=== PATIENT | female | born 1985 | race Caucasian/White ===

== ENCOUNTER → 2016-07-16 | Outpatient (CLI) | payer MEDICAID ==
[~2016-07-16] MED LIST: CEPH500C PO; HYDR1CRE73 PR; IBUP-232 PO; LABE100T2 PO; LABE300T PO; ORTH0.35 PO; OXYC1TAB63 PO; PREN1CAP7 PO
== END ==
LOC: HPND 07:52
PROVIDERS: ATTEND Obstetrics & Gynecology Obstetrics
DX: O44.03 Complete placenta previa NOS or without hemorrhage, third trimester (principal)
CPT/HCPCS: 76816

== ENCOUNTER 2016-07-28 12:01 | Emergency (ER) | payer MEDICAID ==
[~2016-07-28 12:01] MED LIST changes: -HYDR1CRE73 PR; -IBUP-232 PO; -LABE100T2 PO; -LABE300T PO; -ORTH0.35 PO; -OXYC1TAB63 PO
[2016-07-28 13:45] VITALS: RESP 18; TEMP 97.9
--- NOTE | 2016-07-28 13:56 | PD ---
HPI Chief Complaint Patient presented from the office due to increased blood pressure Date Seen: Jul 28, 2016 Time Seen: 13:30 Travel History International Travel<30 Days: No Contact w/Intl Traveler<30Days: No Known Affected Area: No History of Present Illness HPI 31-year-old 011 at 39 weeks and 6 days of gestation, EDC 07/29/16, patient sent from the office for evaluation due to increased blood pressure noted during office visit, patient denies headaches, blurry vision, visual disturbances and epigastric pain. Blood pressure in OB ED is 136/89, 140/87. Patient denies cramping, contractions, leakage of fluids, vaginal bleeding. She reports presence of movements. care [facility], course is unremarkable. Para: 1 : 3 Miscarriage: 0 : 1 History Past Medical History Narrative Medical Denies Medical History: Denies Significant Hx Obstetric History Obstetric History Spontaneous vaginal delivery 1, termination of 1 Past Surgical History Narrative Surgical Denies Surgical History: No Previous Surgery Family History Narrative Family History Significant for asthma and hypertension Social History Alcohol Use: No Tobacco Use: Yes (patient smokes e-cigarettes) Substance Abuse: No Allergies-Medications (Allergen,Severity, Reaction): Coded Allergies: No Known Allergies (Verified , 07/28/16) Home Meds Active Scripts Cephalexin 500 Mg [id number] Mg PO Q12H #14 CAP Ref 0 Prov:Syeda Deleon TRELL RESIDENT DOCTOR 07/23/16 Reported Medications W/O Vit A W/ Fe Fumar (Citranatal [place])27-1-260 Mg Cap1 Cap PO DAILY #30 CAP Ref 0 06/23/16 Review of Systems Except as stated in HPI: all other systems reviewed are Neg Cardiovascular: Other (increased blood pressure) Physical Exam Narrative GENERAL: Well-nourished, well-developed patient. SKIN: Warm and dry. HEAD: Normocephalic and atraumatic. EYES: No scleral icterus. No injection or drainage. ENT: No nasal drainage noted. Mucous membranes pink. Airway patent. NECK: Supple, trachea midline. No JVD. CARDIOVASCULAR: Regular rate and rhythm without murmurs, gallops, or rubs. RESPIRATORY: Breath sounds equal bilaterally. No accessory muscle use. BREASTS: Bilateral exam showed no masses , no retractions, no nipple discharge. ABDOMEN/GI: Abdomen soft, gravid, non-tender, bowel sounds present, no rebound, no guarding Gravid to 40 weeks size Fundal Height: 40 cm GENITOURINARY: External Genitalia: intact and normal in appearance BUS glands: Normal Cervix: Closed, long, posterior Dilatation: Closed Effacement: 30% Station: -3 Presentation: Cephalic Membranes: Intact Uterine Contractions: Occasional FHT's: Category: one Baseline: 140s Reactive: Yes Variability: Moderate Decels: None EXTREMITIES: No cyanosis or edema. BACK: Nontender without obvious deformity. No CVA tenderness. NEUROLOGICAL: Awake and alert. Motor and sensory grossly within normal limits. Five out of 5 muscle strength in all muscle groups. Normal speech. Data Data Vital Signs Reviewed: Yes Orders Vital Signs (Adult) .ON ADMISSION (07/28/16 13:20) ^ Labor Status (07/28/16 13:20) Urinalysis - C+S If Indicated (07/28/16 13:20) ^ Non Stress Test (07/28/16 13:20) ^ Hydration (07/28/16 13:20) Comprehensive Metabolic Panel (07/28/16 13:20) Uric Acid (07/28/16 13:20) Ldh Serum (07/28/16 13:20) Complete Blood Count With Diff (07/28/16 13:20) Protein Creat Ratio, Random Ur (07/28/16 13:22) MDM Medical Record Reviewed: Yes Diagnosis Diagnosis: Primary Impression: 40 weeks gestation of Additional Impression: High blood pressure affecting in third trimester, antepartum Disposition: 01 DISCHARGE HOME Condition: Stable Patient Instructions: Early Labor Signs (ED), Movement (ED), General Instructions, Preeclampsia (ED) Additional Instructions: Patient instructed to return to labor and delivery if she has headaches, blurry vision, visual disturbances, epigastric pain. She is to return to labor and delivery if increased cramping, contractions, leakage of fluids, vaginal bleeding or decreased movements. Drink plenty of fluids. Monitor kick counts. Keep office appointment as scheduled. Departure Forms: Tests/Procedures Jaylon Freeman MD Jul 28, 2016 13:55
[2016-07-28 14:09] LABS: AUTOMATED NEUTROPHIL # 4.5 TH/MM3 (1.8-7.7); BASOPHIL % 0.3 % (0.0-2.0); EOSINOPHIL % 0.6 % (0.0-4.0); HEMATOCRIT 32.2 % (35.0-46.0); HEMO FLAGS DIFF FINAL; LYMPH % 24.9 % (9.0-44.0); LYMPHOCYTE # 1.6 TH/MM3 (1.0-4.8); MEAN CELL VOLUME 91.8 FL (80.0-100.0); MEAN CORPUSCULAR HEMOGLOBIN 31.1 PG (27.0-34.0); MEAN CORPUSCULAR HGB CONC 33.9 % (32.0-36.0); MONO % 5.4 % (0.0-8.0); NEUT % 68.8 % (16.0-70.0); PLATELET COUNT 140 TH/MM3 (150-450); RED CELL DISTRIBUTION WIDTH 14.1 % (11.6-17.2); WHITE BLOOD COUNT 6.6 TH/MM3 (4.0-11.0)
[2016-07-28 14:21] LABS: BACTERIA, URINE RARE /hpf; BLOOD, URINE NEG (NEG); GLUCOSE,URINE NEG (NEG); KETONE, URINE NEG (NEG); MUCUS URINE FEW /lpf (OCC); NITRITE,URINE NEG (NEG); PH, URINE 6.5 (5.0-8.5); SQUAMOUS EPITHELIAL CELL URINE 20 /hpf (0-5); URINE COLOR YELLOW (YELLW/STRAW)
[2016-07-28 14:29] LABS: COMMENT (UR) CULT NOT INDICATED; CULTURE IF INDICATED CULT NOT INDICATED
[2016-07-28 14:37] LABS: ALT (GPT) 37 U/L (10-53); ANION GAP 10 MEQ/L (5-15); AST (GOT) 25 U/L (15-37); BICARBONATE 24.8 MEQ/L (21.0-32.0); BLOOD UREA NITROGEN 8 MG/DL (7-18); CHLORIDE 105 MEQ/L (98-107); GLOMERULAR FILTRATION RATE 110 ML/MIN (>89); LDH SERUM 162 U/L (84-246); POTASSIUM 3.6 MEQ/L (3.5-5.1); SODIUM (NA) 140 MEQ/L (136-145); URIC ACID 3.1 MG/DL (2.6-6.0)
[2016-07-28 14:39] LABS: ALKALINE PHOSPHATASE 212 U/L (45-117); TOTAL BILIRUBIN ADULT 0.3 MG/DL (0.2-1.0)
[2016-08-13] MEDS ORDERED: LABE100T2 PO (11:29)
[2016-09-01] MEDS ORDERED: HYDR1CRE73 PR (10:07)
[2016-09-01] MEDS ORDERED: ORTH0.35 PO (10:08)
== END 2016-07-28 19:08 | disposition home or self-care (01) ==
LOC: HOBED 12:01
DX: O26.93 Pregnancy related conditions, unspecified, third trimester (principal); R03.0 Elevated blood-pressure reading, without diagnosis of hypertension; Z3A.40 40 weeks gestation of pregnancy
CPT/HCPCS: 36415; 59025; 80053; 81001; 82570; 83615; 84156; 84550; 85025

== ENCOUNTER 2016-07-30 06:09 | Inpatient (IN) | payer MEDICAID ==
[~2016-07-30] VITALS: Ht 162.6 cm; Wt 74.4 kg
[2016-07-30] VITALS (73 sets, daily range): BP systolic 126–173; BP diastolic 73–126; PULSE 63–112; RESP 16–20; TEMP 97.9–98.7; O2SAT 99
[2016-07-30] MEDS ORDERED: LIDOCAINE HCL 1% 50 ML VIAL INFIL PRN (07:30)
[2016-07-30] MEDS ORDERED: CITRIC ACID-SODIUM CITRATE LIQ 30 ML UDC PO SCH (07:30)
[2016-07-30] MEDS ORDERED: SODIUM CHLORID 0.9% 500 ML INJ 500 ML IV PRN (07:30)
[2016-07-30] MEDS ORDERED: LACTATED RINGER'S 1000 ML INJ 1,000 ML IV PRN (07:30)
[2016-07-30] MEDS ORDERED: OXYTOCIN 30 UNITS-500ML PREMIX 500 ML IV ONE (07:30)
[2016-07-30] MEDS ORDERED: OXYTOCIN 30 UNITS-500ML PREMIX 500 ML IV SCH (07:30)
[2016-07-30] MEDS ORDERED: LIDOCAINE HCL 1% 50 ML VIAL I-DERMAL PRN (07:30)
[2016-07-30] MEDS ORDERED: MINERAL OIL 10 ML VIAL TOPICAL PRN (07:30)
[2016-07-30] MEDS ORDERED: ONDANSETRON HCL 4 MG/2 ML VIAL IV PRN (07:30)
--- NOTE | 2016-07-30 07:38 | HHI.HP ---
HPI Chief Complaint Blood pressure for induction Date Seen: Jul 30, 2016 Travel History International Travel<30 Days: No Contact w/Intl Traveler<30Days: No History of Present Illness HPI The patient is 31-year-old white female A1 now at 40 weeks gestation presents for induction of labor for induced hypertension. The patient was seen here several days ago with Dr. Dana Hayes for hypertension she was sent over from [facility] Lindsey Riggins is her provider. She has no other problems she denies pain bleeding or rupture the membranes baby is active heart rate tracing is reactive she is only having occasional contraction now Para: 1 : 3 : 1 History Past Medical History Narrative Medical previous history is positive for previous drug use she's been on Subutex in the past but not now Obstetric History Obstetric History One vaginal delivery 1 loss Social History Alcohol Use: No Tobacco Use: Yes Substance Abuse: Yes Allergies-Medications (Allergen,Severity, Reaction): Coded Allergies: No Known Allergies (Verified , 07/30/16) Home Meds Active Scripts Cephalexin 500 Mg [id number] Mg PO Q12H #14 CAP Ref 0 Prov:DeleonSyeda CNM LOCOMOTIVE SUPERVISOR 07/23/16 Reported Medications W/O Vit A W/ Fe Fumar (Citranatal [place])27-1-260 Mg Cap1 Cap PO DAILY #30 CAP Ref 0 06/23/16 Review of Systems General / Constitutional: No: Fever, Weight Gain, Chills, Other Eyes: No: Diploplia, Blurred Vision, Visual changes, Pain, Photophobia HENT: No: Headaches, Vertigo, Lightheadedness Cardiovascular: No: Irregular Rhythm, Chest Pain or Discomfort, Palpitations, Tachycardia, Syncope, Varicosities, Edema, Cyanosis Respiratory: No: Cough, Short of Breath, Other Gastrointestinal: No: Nausea, Vomiting, Diarrhea Genitourinary: No: Decreased Urinary Output, Oliguria Musculoskeletal: No: Limited ROM, Weakness, Cramping, Edema, Pain Skin: No Rash, No Itching, No Dryness, No Lumps, No Change in Pigmentation, No Change in Nails, No Alopecia, No Lesions Neurologic: No: Weakness, Dizziness, Syncope, Focal Abnormalities, Coordination Problem, Headache, Slurred Speech, Seizures Psychiatric: No: Depression, Suicidal Ideations, Homicidal Ideation Endocrine: No: Heat Intolerance, Cold Intolerance, Polydipsia, Polyuria, Other Physical Exam Narrative GENERAL: Well-nourished, well-developed patient. SKIN: Warm and dry. HEAD: Normocephalic and atraumatic. EYES: No scleral icterus. No injection or drainage. ENT: No nasal drainage noted. Mucous membranes pink. Airway patent. NECK: Supple, trachea midline. No JVD. CARDIOVASCULAR: Regular rate and rhythm without murmurs, gallops, or rubs. RESPIRATORY: Breath sounds equal bilaterally. No accessory muscle use. BREASTS: Bilateral exam showed no masses , no retractions, no nipple discharge. ABDOMEN/GI: Abdomen soft, non-tender, bowel sounds present, no rebound, no guarding Gravid to [38-] weeks size Fundal Height: [-38 cm] GENITOURINARY: External Genitalia: intact and normal in appearance BUS glands: [-] Cervix: [-] Dilatation: [1-] Effacement: [50-] Station: [-3] Presentation: [-vtx] Membranes: [intact ] Uterine Contractions: [-occasional] FHT's: Category: [-1] Baseline: [144-] Reactive: [-yes] Variability: [-mod] Decels: [none-] EXTREMITIES: No cyanosis or edema. BACK: Nontender without obvious deformity. No CVA tenderness. NEUROLOGICAL: Awake and alert. Motor and sensory grossly within normal limits. Five out of 5 muscle strength in all muscle groups. Normal speech. Data Data Orders ^ Non Stress Test (07/30/16 07:29) Response To Medication .Post New Med Administration, Reaction (07/30/16 07:29) ^ Discontinue Medication (07/30/16 07:29) Oxytocin 30 Units-500ml Premix (Pitocin (07/30/16 07:30) Admit To Inpatient (07/30/16 ) Vital Signs (Adult) .Per protocol (07/30/16 07:30) ^ Heart (07/30/16 07:30) ^ Amnioinfusion (07/30/16 07:30) Urinary Catheter Management .ONCE (07/30/16 07:30) Diet Liquid (07/30/16 Breakfast) Lactated Ringer's 1000 Ml Inj (Lr 1000 M (07/30/16 07:30) Lactated Ringer's 1000 Ml Inj (Lr 1000 M (07/30/16 07:30) Sodium Chlorid 0.9% 500 Ml Inj (Ns 500 M (07/30/16 07:30) Sodium Chlor 0.9% 1000 Ml Inj (Ns 1000 M (07/30/16 07:50) Lidocaine 1% Inj (50 Ml) (Xylocaine 1% I (07/30/16 07:30) Citric Acid-Sodium Citrate Liq (Bicitra (07/30/16 07:30) Ondansetron Inj (Zofran Inj) (07/30/16 07:30) Fentanyl Inj (Fentanyl Inj) (07/30/16 07:30) Fentanyl Inj (Fentanyl Inj) (07/30/16 07:30) Complete Blood Count With Diff (07/30/16 07:30) Hold Clot (07/30/16 07:30) Abo/Rh Blood Type (07/30/16 07:30) Urinalysis - C+S If Indicated (07/30/16 07:30) Resp Oxygen Non Rebreathe Mask (07/30/16 ) ^ Epidural / Intrathecal Infus (07/30/16 07:30) Oxytocin 30 Units-500ml Premix (Pitocin (07/30/16 07:30) Lidocaine 1% Inj (50 Ml) (Xylocaine 1% I (07/30/16 07:30) Light Mineral Oil (Muri-Lube Oil) (07/30/16 07:30) Specimen To Be Collected PRN (07/30/16 07:30) Comprehensive Metabolic Panel (07/30/16 07:31) Assessment/Plan Assessment and Plan This patient is a 31-year-old white female A1 at 40 weeks gestation presents as an induction of labor for -induced hypertension. [facility]. Her baby is active and NST reactive she is not richa much at this point blood pressure here 149/99, urinalysis is pending [facility] labs pending Plan this induction of labor for [facility] Lenny Hua II, MD Jul 30, 2016 07:37
[2016-07-30 07:41] LABS: AUTOMATED NEUTROPHIL # 5.4 TH/MM3 (1.8-7.7); BASOPHIL # 0.1 TH/MM3 (0-0.2); BASOPHIL % 1.3 % (0.0-2.0); EOSINOPHIL # 0.1 TH/MM3 (0-0.4); EOSINOPHIL % 0.6 % (0.0-4.0); HEMATOCRIT 33.9 % (35.0-46.0); HEMO FLAGS DIFF FINAL; LYMPH % 26.2 % (9.0-44.0); LYMPHOCYTE # 2.2 TH/MM3 (1.0-4.8); MEAN CORPUSCULAR HEMOGLOBIN 31.6 PG (27.0-34.0); MONO % 7.8 % (0.0-8.0); NEUT % 64.1 % (16.0-70.0); PLATELET COUNT 206 TH/MM3 (150-450); RED BLOOD COUNT 3.64 MIL/MM3 (4.00-5.30); RED CELL DISTRIBUTION WIDTH 13.9 % (11.6-17.2); WHITE BLOOD COUNT 8.4 TH/MM3 (4.0-11.0)
[2016-07-30 07:45] LABS: BACTERIA, URINE MOD /hpf; BLOOD, URINE NEG (NEG); COMMENT (UR) CULTURE INDICATED; CULTURE IF INDICATED CULTURE INDICATED; GLUCOSE,URINE NEG (NEG); KETONE, URINE NEG (NEG); MUCUS URINE FEW /lpf (OCC); NITRITE,URINE NEG (NEG); PH, URINE 6.5 (5.0-8.5); SQUAMOUS EPITHELIAL CELL URINE 47 /hpf (0-5); URINE COLOR YELLOW (YELLW/STRAW)
[2016-07-30] MEDS ORDERED: SODIUM CHLOR 0.9% 1000 ML INJ 1,000 ML IV PRN (07:50)
[2016-07-30] MEDS: LACTATED RINGER'S 1000 ML INJ 1,000 ML IV SCH ×4 (08:03→23:30)
[2016-07-30 08:11] LABS: ALKALINE PHOSPHATASE 234 U/L (45-117); ALT (GPT) 39 U/L (10-53); ANION GAP 8 MEQ/L (5-15); AST (GOT) 48 U/L (15-37); BLOOD UREA NITROGEN 11 MG/DL (7-18); CHLORIDE 102 MEQ/L (98-107); GLOMERULAR FILTRATION RATE 98 ML/MIN (>89); POTASSIUM 4.4 MEQ/L (3.5-5.1); SODIUM (NA) 134 MEQ/L (136-145); TOTAL BILIRUBIN ADULT 0.4 MG/DL (0.2-1.0)
[2016-07-30 08:39] LABS: AMPHETAMINE, URINE NEG (NEG); BARBITURATES, URINE NEG (NEG); COCAINE, URINE NEG (NEG)
--- NOTE | 2016-07-30 09:18 | PD.LABORPN ---
Subjective Subjective Patient resting in bed. Slightly anxious about the delivery. Denies any headache , changes in vision, abdominal pain. BPs range in 150/100s Objective Vital Signs Vital Signs Date Time Temp Pulse Resp B/P Pulse Ox O2 Delivery O2 Flow Rate FiO2 07/30/16 08:15 102 156/103 Objective Pelvic Exam: Dilatation: 1 Effacement: 50% Station: -3 Presentation: vertex Membranes: intact Uterine Contractions: q5-7 minutes FHT's: Category: 1 Baseline: 130 Reactive: yes Variability: moderate Decels: none Assessment/Plan Assessment and Plan 31 y/o at 40/1 in labor -BPs 150/100s -Platelets 206, AST 48, urine 30 protein -Anxious, otherwise asymptomatic Plan - Monitor vitals - Monitor symptoms - Continuous FHT - Expectant management - Plan for vaginal delivery Boyd Albarran MD R1 Jul 30, 2016 09:18
[2016-07-30] MEDS ORDERED: NIFEdipine 10 MG CAP PO ONE (10:15)
--- NOTE | 2016-07-30 10:18 | PD.LABORPN ---
Subjective Subjective Changing shifts Dr. Love coming on duty; Chart reviewed This patient is a 31-year-old 3 para 1 presently at 40 weeks admitted for an elective induction secondary to -induced hypertension. She has no known drug allergies she no longer uses Subutex. B strep is negative Previous vaginal delivery of weighing 7 lbs. 13 oz. which was uncomplicated On physical exam a change of shift blood pressures 172/96 Abdomen is gravid and term with an estimated weight of 8 pounds No edema of her lower extremities and her reflexes are 2+ and non-brisk On examination she is 50% 1 cm with the vertex at a -3 station cervix is a little less posterior Pitocin is presently on 4 milliunits she is richa irregularly She has a category 1 tracing with a baseline of 130 accelerations up to 160 with moderate [id number] variability Have introduced myself to the patient and her family Explain the process of induction as well as Pitocin Discussed the course of the labor plan in that at the end of the day if she has not made any change we will stop the Pitocin have her eat and Ambulate , Cervidil tonight and restart the Pitocin in the a.m. Patient agrees with this plan Objective Vital Signs Vital Signs Date Time Temp Pulse Resp B/P Pulse Ox O2 Delivery O2 Flow Rate FiO2 07/30/16 09:23 16 07/30/16 09:15 80 154/104 07/30/16 09:00 82 142/96 07/30/16 08:53 16 07/30/16 08:45 89 148/97 07/30/16 08:32 86 165/97 07/30/16 08:30 16 07/30/16 08:15 102 156/103 Objective Pelvic Exam: Cervix: [-] Dilatation: [-] Effacement: [-] Station: [-] Presentation: [-] Membranes: [intact or ruptured] Uterine Contractions: [-] FHT's: Category: [-] Baseline: [-] Reactive: [-] Variability: [-] Decels: [-] Neha Baumann MD Jul 30, 2016 10:18
[2016-07-30] MEDS ORDERED: fentaNYL 2MCG-BUPIV 0.125% INJ 100 ML ONE (19:22)
[2016-07-30] MEDS ORDERED: fentaNYL 2MCG-BUPIV 0.125% INJ 100 ML EPIDURAL SCH (19:30)
[2016-07-30] MEDS ORDERED: ePHEDrine/NS 50 MG/5 ML SYR IV PRN (19:30)
[2016-07-30] MEDS ORDERED: NO SYSTEM NARCOTICS XX PRN (19:30)
[2016-07-30] MEDS ORDERED: DO NOT ADMINISTER ANTICOAGULANTS XX PRN (19:30)
[2016-07-30] MEDS ORDERED: NIFEdipine 10 MG CAP ONE (20:01)
--- NOTE | 2016-07-30 20:01 | PD.LABORPN ---
Subjective Subjective Blood pressures have been consistently elevated will give Procardia 10 mg by mouth Will do rupture of membranes Placement of an IUPC Pitocin We'll also start patient on magnesium sulfate 4 g loading dose 2 g an hour Objective Vital Signs Vital Signs Date Time Temp Pulse Resp B/P Pulse Ox O2 Delivery O2 Flow Rate FiO2 07/30/16 16:45 75 16 155/98 07/30/16 16:30 145/98 07/30/16 16:30 76 07/30/16 16:15 79 170/117 07/30/16 16:02 66 169/106 07/30/16 16:02 97.9 20 07/30/16 15:45 69 149/94 07/30/16 15:30 75 151/98 07/30/16 15:29 16 07/30/16 15:15 71 132/81 07/30/16 15:00 63 16 131/79 07/30/16 14:46 64 152/81 07/30/16 14:30 76 16 136/87 07/30/16 14:30 98.7 07/30/16 14:15 75 147/94 07/30/16 14:00 67 16 145/89 07/30/16 13:46 75 128/81 07/30/16 13:31 73 162/93 07/30/16 13:30 16 07/30/16 13:15 81 144/93 07/30/16 13:00 98 158/91 07/30/16 12:54 98.6 07/30/16 12:52 16 07/30/16 12:45 83 141/88 07/30/16 12:30 84 130/78 07/30/16 12:15 91 138/82 Objective Pelvic Exam: Cervix: [-] Dilatation: [-] Effacement: [-] Station: [-] Presentation: [-] Membranes: [intact or ruptured] Uterine Contractions: [-] FHT's: Category: [-] Baseline: [-] Reactive: [-] Variability: [-] Decels: [-] Neha Baumann MD Jul 30, 2016 20:01
[2016-07-30] MEDS ORDERED: MAGNESIUM SULFATE 40 GM PREMIX 1,000 ML ONE (20:02)
[2016-07-30] MEDS ORDERED: MAGNESIUM SULFATE 4 GM PREMIX 100 ML ONE (20:02)
[2016-07-30] MEDS ORDERED: SODIUM CHLORIDE 0.9% FLUSH 5 ML FLUSH IV PRN (20:15)
[2016-07-30] MEDS ORDERED: MAGNESIUM SULFATE 4 GM PREMIX 100 ML IV ONE (20:15)
[2016-07-30] MEDS ORDERED: CALCIUM GLUCONATE 10% 1 GM/10 ML VIAL IV PUSH PRN (20:15)
[2016-07-30] MEDS ORDERED: NIFEdipine 10 MG CAP PO PRN ×3 (20:15→20:45)
[2016-07-30] MEDS: MAGNESIUM SULFATE 40 GM PREMIX 1,000 ML IV SCH (20:20)
--- NOTE | 2016-07-30 20:25 | PD.LABORPN ---
Subjective Subjective Patient now has epidural was placed as the patient is very uncomfortable not allowing exams and very uncomfortable with exams Blood pressure 160s over 100 Now 147/82 Patient started on magnesium sulfate for preeclampsia due to protein in her urine mildly elevated liver enzymes and elevated blood pressure Pitocin restarted 07/13/29 On exam patient is 1-2 cm 50% with the vertex at a -2 station Once patient gets into a good labor pattern Will artificially rupture the membranes IUPC Anticipate vaginal delivery Category 1 tracing Objective Vital Signs Vital Signs Date Time Temp Pulse Resp B/P Pulse Ox O2 Delivery O2 Flow Rate FiO2 07/30/16 16:45 75 16 155/98 07/30/16 16:30 145/98 07/30/16 16:30 76 07/30/16 16:15 79 170/117 07/30/16 16:02 66 169/106 07/30/16 16:02 97.9 20 07/30/16 15:45 69 149/94 07/30/16 15:30 75 151/98 07/30/16 15:29 16 07/30/16 15:15 71 132/81 07/30/16 15:00 63 16 131/79 07/30/16 14:46 64 152/81 07/30/16 14:30 76 16 136/87 07/30/16 14:30 98.7 07/30/16 14:15 75 147/94 07/30/16 14:00 67 16 145/89 07/30/16 13:46 75 128/81 07/30/16 13:31 73 162/93 07/30/16 13:30 16 07/30/16 13:15 81 144/93 07/30/16 13:00 98 158/91 07/30/16 12:54 98.6 07/30/16 12:52 16 07/30/16 12:45 83 141/88 07/30/16 12:30 84 130/78 Objective Pelvic Exam: Cervix: [-] Dilatation: [-] Effacement: [-] Station: [-] Presentation: [-] Membranes: [intact or ruptured] Uterine Contractions: [-] FHT's: Category: [-] Baseline: [-] Reactive: [-] Variability: [-] Decels: [-] Neha Baumann MD Jul 30, 2016 20:25
[2016-07-30] MEDS: SODIUM CHLORIDE 0.9% FLUSH 5 ML FLUSH IV SCH (21:00)
[2016-07-30] MEDS ORDERED: LABETALOL HCL 100 MG/20 ML VIAL IV PUSH PRN (21:15)
[2016-07-31] VITALS (109 sets, daily range): BP systolic 115–167; BP diastolic 64–124; PULSE 64–118; RESP 16–18; TEMP 96.5–98.6; O2SAT 96–100
--- NOTE | 2016-07-31 02:03 | PD.LABORPN ---
Subjective Subjective Patient is 50% effaced 4 cm dilated with a vertex at a -2 station Epidural is in place and patient is comfortable Attempts to do artificial rupture membranes however no membranes palpated no fluid per vagina (Patient states she may have ruptured her membranes while on the toilet but unsure) Category 1 tracing Vital signs are stable Pitocin at 6 milliunits and contractions are irregular every 2-5 minutes Continue to monitor Objective Vital Signs Vital Signs Date Time Temp Pulse Resp B/P Pulse Ox O2 Delivery O2 Flow Rate FiO2 07/31/16 01:20 70 97 07/31/16 01:15 72 123/70 97 07/31/16 01:09 18 07/31/16 01:01 71 135/82 07/31/16 01:00 73 16 97 07/31/16 00:55 74 98 07/31/16 00:50 71 98 07/31/16 00:45 83 153/90 99 07/31/16 00:30 74 141/95 98 07/31/16 00:30 80 07/31/16 00:25 75 98 07/31/16 00:20 79 98 07/31/16 00:15 74 125/92 99 07/31/16 00:15 86 07/31/16 00:11 16 07/31/16 00:10 75 98 07/31/16 00:05 77 98 07/31/16 00:00 78 07/31/16 00:00 80 141/86 98 07/30/16 23:45 79 07/30/16 23:45 75 126/74 99 07/30/16 23:00 69 07/30/16 22:46 68 135/74 07/30/16 22:30 78 135/92 07/30/16 22:15 16 07/30/16 22:15 77 139/88 07/30/16 22:00 83 150/93 07/30/16 22:00 18 07/30/16 22:00 80 07/30/16 21:45 77 143/90 07/30/16 21:45 75 07/30/16 21:30 90 07/30/16 21:30 98.1 07/30/16 21:30 89 137/95 07/30/16 21:25 80 07/30/16 21:20 78 07/30/16 21:15 68 07/30/16 21:00 81 1/18/17 20:45 99 07/30/16 20:40 96 07/30/16 20:30 76 07/30/16 20:26 80 146/88 07/30/16 20:25 78 151/86 07/30/16 20:20 77 07/30/16 20:16 77 151/85 07/30/16 20:15 76 07/30/16 20:14 18 07/30/16 20:10 108 07/30/16 20:05 97 07/30/16 20:00 108 147/73 07/30/16 19:55 112 159/101 07/30/16 19:50 87 154/102 07/30/16 19:45 94 167/112 07/30/16 19:40 102 166/111 07/30/16 19:38 95 169/103 07/30/16 19:35 100 158/126 07/30/16 19:32 105 173/100 07/30/16 19:31 88 Objective Pelvic Exam: Cervix: [-] Dilatation: [-] Effacement: [-] Station: [-] Presentation: [-] Membranes: [intact or ruptured] Uterine Contractions: [-] FHT's: Category: [-] Baseline: [-] Reactive: [-] Variability: [-] Decels: [-] Neha Baumann MD Jul 31, 2016 02:03
--- NOTE | 2016-07-31 07:07 | PD.LABORPN ---
Subjective Subjective Patient is comfortable with her epidural however she is starting to feel her contractions Blood pressure 134/76 Category 1 tracing with the baseline at 1:30 and accelerations up to 160 periods of sleep wake Pitocin at 9 milliunits Contractions every 2-3 minutes Patient is 50% effaced 5-6 cm dilated with the vertex at a -2 station Progress has been made We'll continue to monitor closely and anticipate vaginal delivery Presently on magnesium sulfate Objective Vital Signs Vital Signs Date Time Temp Pulse Resp B/P Pulse Ox O2 Delivery O2 Flow Rate FiO2 07/31/16 06:45 85 151/92 100 07/31/16 06:41 16 07/31/16 06:30 73 134/76 97 07/31/16 06:15 74 131/78 98 07/31/16 06:00 97.8 07/31/16 06:00 85 16 145/88 100 07/31/16 05:45 67 135/75 98 07/31/16 05:45 67 07/31/16 05:30 69 97 07/31/16 05:30 71 126/74 07/31/16 05:25 68 97 07/31/16 05:20 73 97 07/31/16 05:15 16 07/31/16 05:15 67 137/79 99 07/31/16 05:15 75 07/31/16 05:00 69 133/73 99 07/31/16 05:00 75 07/31/16 04:45 80 139/83 100 07/31/16 04:45 79 07/31/16 04:45 16 07/31/16 04:33 78 135/83 07/31/16 04:30 83 98 07/31/16 04:30 79 07/31/16 04:17 98.1 16 07/31/16 04:15 74 116/71 97 07/31/16 04:15 73 07/31/16 04:00 71 07/31/16 04:00 73 130/74 98 07/31/16 03:59 16 07/31/16 03:55 76 98 07/31/16 03:50 80 99 07/31/16 03:45 78 129/81 99 07/31/16 03:45 78 07/31/16 03:35 72 98 07/31/16 03:30 73 07/31/16 03:30 71 132/81 99 17 03:17 73 133/85 17 03:15 75 16 98 17 03:15 73 17 03:00 72 130/74 97 17 03:00 64 17 02:55 69 97 17 02:50 71 97 17 02:45 77 135/85 97 07/31/16 02:45 79 07/31/16 02:40 78 96 07/31/16 02:35 71 97 17 02:31 77 131/79 07/31/16 02:30 72 97 07/31/16 02:30 16 07/31/16 02:25 69 97 07/31/16 02:20 69 98 07/31/16 02:16 69 144/77 07/31/16 02:15 70 97 07/31/16 02:10 66 98 07/31/16 02:05 67 98 07/31/16 02:00 69 159/88 98 07/31/16 02:00 70 07/31/16 01:55 73 98 17 01:50 75 99 17 01:45 72 17 01:45 78 145/91 99 07/31/16 01:20 70 97 07/31/16 01:15 72 123/70 97 17 01:09 18 07/31/16 01:01 71 135/82 07/31/16 01:00 73 16 97 07/31/16 00:55 74 98 07/31/16 00:50 71 98 07/31/16 00:45 83 153/90 99 17 00:30 74 141/95 98 17 00:30 80 17 00:25 75 98 17 00:20 79 98 17 00:15 74 125/92 99 17 00:15 86 17 00:11 16 17 00:10 75 98 17 00:05 77 98 17 00:00 78 07/31/16 00:00 80 141/86 98 17 23:45 79 17 23:45 75 126/74 99 Objective Pelvic Exam: Cervix: [-] Dilatation: [-] Effacement: [-] Station: [-] Presentation: [-] Membranes: [intact or ruptured] Uterine Contractions: [-] FHT's: Category: [-] Baseline: [-] Reactive: [-] Variability: [-] Decels: [-] Neha Baumann MD Jul 31, 2016 07:07
[2016-07-31] MEDS: LACTATED RINGER'S 1000 ML INJ 1,000 ML IV SCH ×5 (07:30→17:03)
[2016-07-31] MEDS ORDERED: BUPIVACAINE HCL PF 0.25% 10 ML VIAL ONE (07:31)
--- NOTE | 2016-07-31 08:15 | PD.LABORPN ---
Subjective Subjective Patient starting to feel pressure Episode of early decelerations 1 variable noted On exam patient is 9 cm dilated vertex at a 0 station 100% effaced Positive accelerations baseline 130 with accelerations up to 160 with scalp stimulation Anticipate vaginal delivery Positioned O2 applied IV hydration Pitocin decreased at 2 milliunits Objective Vital Signs Vital Signs Date Time Temp Pulse Resp B/P Pulse Ox O2 Delivery O2 Flow Rate FiO2 07/31/16 07:04 98.6 16 07/31/16 07:00 82 145/82 99 07/31/16 06:45 89 07/31/16 06:45 85 151/92 100 07/31/16 06:41 16 07/31/16 06:30 72 07/31/16 06:30 73 134/76 97 07/31/16 06:15 74 131/78 98 07/31/16 06:15 78 07/31/16 06:00 97.8 07/31/16 06:00 81 07/31/16 06:00 85 16 145/88 100 07/31/16 05:45 67 135/75 98 07/31/16 05:45 67 07/31/16 05:30 69 97 07/31/16 05:30 71 126/74 07/31/16 05:25 68 97 07/31/16 05:20 73 97 07/31/16 05:15 16 07/31/16 05:15 67 137/79 99 07/31/16 05:15 75 07/31/16 05:00 69 133/73 99 07/31/16 05:00 75 07/31/16 04:45 80 139/83 100 07/31/16 04:45 79 07/31/16 04:45 16 07/31/16 04:33 78 135/83 07/31/16 04:30 83 98 07/31/16 04:30 79 07/31/16 04:17 98.1 16 07/31/16 04:15 74 116/71 97 07/31/16 04:15 73 07/31/16 04:00 71 07/31/16 04:00 73 130/74 98 07/31/16 03:59 16 07/31/16 03:55 76 98 07/31/16 03:50 80 99 07/31/16 03:45 78 129/81 99 07/31/16 03:45 78 07/31/16 03:35 72 98 07/31/16 03:30 73 07/31/16 03:30 71 132/81 99 07/31/16 03:17 73 133/85 07/31/16 03:15 75 16 98 07/31/16 03:15 73 07/31/16 03:00 72 130/74 97 07/31/16 03:00 64 07/31/16 02:55 69 97 07/31/16 02:50 71 97 07/31/16 02:45 77 135/85 97 07/31/16 02:45 79 07/31/16 02:40 78 96 07/31/16 02:35 71 97 07/31/16 02:31 77 131/79 07/31/16 02:30 72 97 07/31/16 02:30 16 07/31/16 02:25 69 97 07/31/16 02:20 69 98 07/31/16 02:16 69 144/77 07/31/16 02:15 70 97 07/31/16 02:10 66 98 07/31/16 02:05 67 98 07/31/16 02:00 69 159/88 98 07/31/16 02:00 70 07/31/16 01:55 73 98 07/31/16 01:50 75 99 07/31/16 01:45 72 07/31/16 01:45 78 145/91 99 07/31/16 01:20 70 97 07/31/16 01:15 72 123/70 97 07/31/16 01:09 18 07/31/16 01:01 71 135/82 07/31/16 01:00 73 16 97 07/31/16 00:55 74 98 07/31/16 00:50 71 98 07/31/16 00:45 83 153/90 99 07/31/16 00:30 74 141/95 98 07/31/16 00:30 80 07/31/16 00:25 75 98 07/31/16 00:20 79 98 07/31/16 00:15 74 125/92 99 07/31/16 00:15 86 Objective Pelvic Exam: Cervix: [-] Dilatation: [-] Effacement: [-] Station: [-] Presentation: [-] Membranes: [intact or ruptured] Uterine Contractions: [-] FHT's: Category: [-] Baseline: [-] Reactive: [-] Variability: [-] Decels: [-] Neha Baumann MD Jul 31, 2016 08:15
[2016-07-31] MEDS: SODIUM CHLORIDE 0.9% FLUSH 5 ML FLUSH IV SCH (09:00)
[2016-07-31] MEDS ORDERED: LACTATED RINGER'S 1000 ML INJ 1,000 ML IV ONE (09:53)
[2016-07-31] MEDS ORDERED: OXYTOCIN 10 UNIT/ML AMP ONE (09:57)
[2016-07-31] MEDS ORDERED: ceFAZolin INJ 1,000 MG VIAL ONE (09:57)
--- NOTE | 2016-07-31 10:12 | PD.LABORPN ---
Subjective Subjective Patient in the second stage of labor for one hour no progress no descent. Have recommender a c/section for failure of descebt due to persistent OP. The procedure indications and complication os the procedure discussed with the family the understand and agree. baby with early deceleration + acceleration with scalp stimulation Objective Vital Signs Vital Signs Date Time Temp Pulse Resp B/P Pulse Ox O2 Delivery O2 Flow Rate FiO2 07/31/16 08:45 75 129/83 07/31/16 08:30 103 130/107 100 07/31/16 08:25 92 100 07/31/16 08:21 16 07/31/16 08:20 85 100 07/31/16 08:15 67 122/73 100 07/31/16 08:15 64 07/31/16 08:10 112 100 07/31/16 08:05 102 115/72 100 07/31/16 08:05 99 07/31/16 08:01 107 126/78 07/31/16 08:00 103 100 07/31/16 07:55 107 100 07/31/16 07:55 109 151/103 07/31/16 07:50 104 158/98 100 07/31/16 07:50 93 07/31/16 07:45 104 07/31/16 07:45 109 151/107 100 07/31/16 07:40 107 141/124 100 07/31/16 07:40 109 07/31/16 07:35 90 07/31/16 07:30 94 07/31/16 07:15 108 07/31/16 07:10 96 100 07/31/16 07:05 83 100 07/31/16 07:04 98.6 16 07/31/16 07:00 82 145/82 99 07/31/16 07:00 80 07/31/16 06:45 89 07/31/16 06:45 85 151/92 100 07/31/16 06:41 16 07/31/16 06:40 85 99 07/31/16 06:35 72 97 07/31/16 06:30 72 07/31/16 06:30 73 134/76 97 07/31/16 06:15 74 131/78 98 07/31/16 06:15 78 07/31/16 06:00 97.8 07/31/16 06:00 81 07/31/16 06:00 85 16 145/88 100 17 05:45 67 135/75 98 17 05:45 67 17 05:30 69 97 17 05:30 71 126/74 17 05:25 68 97 17 05:20 73 97 07/31/16 05:15 16 07/31/16 05:15 67 137/79 99 07/31/16 05:15 75 07/31/16 05:00 69 133/73 99 07/31/16 05:00 75 07/31/16 04:45 80 139/83 100 07/31/16 04:45 79 07/31/16 04:45 16 07/31/16 04:33 78 135/83 07/31/16 04:30 83 98 07/31/16 04:30 79 07/31/16 04:17 98.1 16 07/31/16 04:15 74 116/71 97 07/31/16 04:15 73 07/31/16 04:00 71 07/31/16 04:00 73 130/74 98 17 03:59 16 07/31/16 03:55 76 98 17 03:50 80 99 17 03:45 78 129/81 99 17 03:45 78 07/31/16 03:35 72 98 17 03:30 73 07/31/16 03:30 71 132/81 99 17 03:17 73 133/85 07/31/16 03:15 75 16 98 17 03:15 73 17 03:00 72 130/74 97 17 03:00 64 07/31/16 02:55 69 97 17 02:50 71 97 17 02:45 77 135/85 97 17 02:45 79 07/31/16 02:40 78 96 17 02:35 71 97 17 02:31 77 131/79 17 02:30 72 97 17 02:30 16 17 02:25 69 97 17 02:20 69 98 17 02:16 69 144/77 1/19/17 02:15 70 97 Objective Pelvic Exam: Cervix: [-] Dilatation: [-] Effacement: [-] Station: [-] Presentation: [-] Membranes: [intact or ruptured] Uterine Contractions: [-] FHT's: Category: [-] Baseline: [-] Reactive: [-] Variability: [-] Decels: [-] Neha Baumann MD Jul 31, 2016 10:12
[2016-07-31] MEDS ORDERED: ACETAMINOPHEN 1000 MG/100 ML VIAL IV ONE ×2 (10:28→11:00)
[2016-07-31 10:41] LABS: BLOOD GAS BASE EXCESS 1.2 mmol/L (-2-2); BLOOD GAS O2 HGB SATURATION 12 % (90-100); CORD BLOOD GAS HCO3 28 mmol/L (21-29); CORD BLOOD GAS PCO2 65 mmHG (34-78); CORD BLOOD GAS PH 7.25 (7.14-7.42); CORD BLOOD GAS PO2 12 mmHG (3.0-40.0); DRAW SITE CORD BLOOD; STAT NO
[2016-07-31] MEDS ORDERED: LACTATED RINGER'S 1000 ML INJ 1,000 ML IV SCH ×2 (10:51→15:51)
[2016-07-31] MEDS ORDERED: MAGNESIUM SULFATE 40 GM PREMIX 1,000 ML IV SCH (10:51)
[2016-07-31] MEDS ORDERED: oxyCODONE/ACETAMINOPHEN 5 MG/325 MG TAB PO PRN (11:00)
[2016-07-31] MEDS ORDERED: NIFEdipine 10 MG CAP PO PRN ×2 (11:00→15:30)
[2016-07-31] MEDS ORDERED: KETOROLAC TROMETHAMINE 60 MG/2 ML (IM) VIAL IM PRN (11:00)
[2016-07-31] MEDS ORDERED: ONDANSETRON HCL 4 MG/2 ML VIAL IV PUSH PRN (11:00)
[2016-07-31] MEDS ORDERED: SODIUM CHLORIDE 0.9% FLUSH 5 ML FLUSH IV PRN (11:00)
[2016-07-31] MEDS ORDERED: ACETAMINOPHEN 325 MG TAB PO PRN (11:00)
[2016-07-31] MEDS ORDERED: CALCIUM GLUCONATE 10% 1 GM/10 ML VIAL IV PUSH PRN (11:00)
[2016-07-31] MEDS ORDERED: OXYTOCIN 30 UNITS-500ML PREMIX 500 ML IV ONE (11:00)
[2016-07-31] MEDS ORDERED: ZOLPIDEM TARTRATE 5 MG TAB PO PRN (11:00)
--- NOTE | 2016-07-31 11:00 | PD.OP ---
Operative Report Date of Surgery: Jul 31, 2016 Preoperative Diagnosis: Intrauterine at 40 weeks -induced hypertension Failure of descent Persistent occiput posterior Postoperative Diagnosis: Same Procedure: Primary low segment transverse section with small T-incision Anesthesia: Epidural Surgeon: Neha Love Sanitarian Aide(s): Dr. Rosa Tan Resident Surgeon: None Operation and Findings: Anesthesiologist:: (Donn Cortes ) Estimated blood loss: (700 cc ) Sponge and instrument count: (Correct ) Drains: (None ) Complications: (Persistent OP unable to rotate the shoulders necessitating a small T to release the constriction band around the neck ) Indications for procedure: (Failure of descent in the second stage of labor secondary to persistent occiput posterior ) Findings: (Viable female weight 7 lbs. 13 oz. equaling 3550 grams Apgars of 7 at 1 minute 9 at 5 minutes Cord pH pending as of this dictation ) Timeout done The patient was taken to the operating room after appropriate levels of epidural anesthesia were achieved she was placed in the supine position. A Rai catheter was previously inserted under sterile conditions and draining adequate clear urine. Intermittent compression hoses were placed and functioning. Bovie pad was placed and grounded. The abdomen was shaved prepped and draped in the usual sterile fashion. A transverse Pfannenstiel incision was made carried down through the skin subcutaneous tissue. The fascia was opened transversely. from the muscles in the midline. The rectus muscles were . Peritoneal cavity opened and the abdominal cavity entered. The bladder flap was taken down transversely and a low segment transverse incision made into the lower uterine segment. The fluid was ( clear). The was vertex direct OP with slight hyperextension of the vertex. Due to the diameter of the shoulders it required a small T incision to release the constriction band around the infant's neck in order to deliver the shoulders The baby was delivered nose and mouth suctioned well Cord doubly clamped and cut and the infant handed over to the awaiting nursing staff. The placenta spontaneously delivered intact with fundal massage. Cord pH was obtained and the placenta sent to pathology The uterus was then exteriorized cleaned of excessive blood and debris. The T incision was closed in 2 layers with 0 chromic suture The incision was then closed with 0 chromic in a continuous interlocking stitch. The stitch line was imbricated also using 0 chromic. Points of bleeding were controlled with [id number] Tubes and ovaries were inspected and found to be normal. The abdominal cavity was then irrigated. The uterus placed back into the abdomen. Paracolic gutters cleaned of excessive blood and debris. Thaddeus was placed over the incision and in the angles as well as over the bladder Interceed was then placed over the incision and the anterior surface of the uterus in an inverted T. The peritoneum was then closed with 2-0 Vicryl. The muscles reapproximated. Inspection of the muscle bed demonstrated no bleeding. Intercede placed over the muscle at the midline. The fascia was then closed with 0 Vicryl in a continuous stitch. The subcutaneous tissue was irrigated bleeders controlled with Bovie. Keke's fascia closed with 2-0 Vicryl. The skin was closed using ( subcuticular stitch with 3-0 Monocryl). The uterus was massaged clearing blood and clots. The patient was cleaned. Pressure dressing and abdominal binder placed. Patient then transferred to the recovery room in stable condition, where her vital signs are (stable ). Urine is clear and adequate. Baby transferred to the nursery in stable condition. Neha Baumann MD Jul 31, 2016 11:00
[2016-07-31] MEDS ORDERED: MORPHINE SULFATE PF 5 MG/10 ML VIAL ONE (11:03)
[2016-07-31] MEDS ORDERED: NIFEdipine 20 MG CAP PO PRN ×2 (11:15→11:45)
[2016-07-31] MEDS ORDERED: CITRIC ACID-SODIUM CITRATE LIQ 30 ML UDC PO SCH (11:30)
[2016-07-31] MEDS ORDERED: LORazepam 2 MG/ML VIAL ONE (11:52)
[2016-07-31] MEDS ORDERED: HYDROmorphone HCL PF 2 MG/ML VIAL ONE ×2 (11:53→12:48)
[2016-07-31] MEDS ORDERED: LABETALOL HCL 100 MG/20 ML VIAL IV PUSH PRN (12:00)
[2016-07-31] MEDS ORDERED: EPIDURAL-NALOXONE HCL 0.4 MG/ML AMP IV PRN (13:00)
[2016-07-31] MEDS ORDERED: LORazepam 2 MG/ML VIAL IV ONE (13:00)
[2016-07-31] MEDS ORDERED: EPIDURAL-DIPHENHYDRAMINE HCL 50 MG/ML VIAL IV PUSH PRN (13:00)
[2016-07-31] MEDS ORDERED: EPIDURAL-DIPHENHYDRAMINE HCL 50 MG CAP PO PRN (13:00)
[2016-07-31] MEDS ORDERED: EPIDURAL-DO NOT ADMINISTER ANTICOAGULANTS XX PRN (13:00)
[2016-07-31] MEDS ORDERED: HYDROmorphone HCL PF 2 MG/ML VIAL IV ONE (13:00)
[2016-07-31] MEDS ORDERED: EPIDURAL-NO SYSTEMIC NARCOTICS XX PRN (13:00)
[2016-07-31] MEDS: oxyCODONE/ACETAMINOPHEN 5 MG/325 MG TAB PO PRN ×2 (17:24→22:00)
[2016-07-31] MEDS: MAGNESIUM SULFATE 40 GM PREMIX 1,000 ML IV SCH (18:16)
[2016-07-31] MEDS ORDERED: OXYTOCIN 30 UNITS-500ML PREMIX 500 ML IV PRN (21:00)
[2016-07-31] MEDS ORDERED: SODIUM CHLORIDE 0.9% FLUSH 5 ML FLUSH IV SCH (21:00)
[2016-07-31 21:17] LABS: AUTOMATED NEUTROPHIL # 11.1 TH/MM3 (1.8-7.7); BASOPHIL % 0.1 % (0.0-2.0); EOSINOPHIL % 0.1 % (0.0-4.0); HEMATOCRIT 33.5 % (35.0-46.0); HEMO FLAGS DIFF FINAL; LYMPH % 13.7 % (9.0-44.0); LYMPHOCYTE # 1.9 TH/MM3 (1.0-4.8); MEAN CORPUSCULAR HEMOGLOBIN 30.5 PG (27.0-34.0); MEAN CORPUSCULAR HGB CONC 32.8 % (32.0-36.0); MONO % 4.9 % (0.0-8.0); NEUT % 81.2 % (16.0-70.0); PLATELET COUNT 145 TH/MM3 (150-450); RED BLOOD COUNT 3.61 MIL/MM3 (4.00-5.30); WHITE BLOOD COUNT 13.7 TH/MM3 (4.0-11.0)
[2016-07-31] MEDS: IBUPROFEN 600 MG TAB PO PRN (21:59)
[2016-08-01] VITALS (13 sets, daily range): BP systolic 125–156; BP diastolic 69–110; PULSE 64–90; RESP 16–20; TEMP 97.7
[2016-08-01] MEDS: LACTATED RINGER'S 1000 ML INJ 1,000 ML IV SCH (01:51)
[2016-08-01] MEDS: oxyCODONE/ACETAMINOPHEN 5 MG/325 MG TAB PO PRN ×5 (01:57→20:23)
[2016-08-01 06:01] LABS: AUTOMATED NEUTROPHIL # 8.2 TH/MM3 (1.8-7.7); BASOPHIL % 0.2 % (0.0-2.0); EOSINOPHIL % 0.4 % (0.0-4.0); HEMATOCRIT 31.6 % (35.0-46.0); HEMO FLAGS DIFF FINAL; LYMPH % 19.2 % (9.0-44.0); LYMPHOCYTE # 2.1 TH/MM3 (1.0-4.8); MEAN CELL VOLUME 93.1 FL (80.0-100.0); MEAN CORPUSCULAR HEMOGLOBIN 31.4 PG (27.0-34.0); MEAN CORPUSCULAR HGB CONC 33.7 % (32.0-36.0); MONO % 4.3 % (0.0-8.0); NEUT % 75.9 % (16.0-70.0); PLATELET COUNT 138 TH/MM3 (150-450); RED BLOOD COUNT 3.39 MIL/MM3 (4.00-5.30); WHITE BLOOD COUNT 10.9 TH/MM3 (4.0-11.0)
[2016-08-01] MEDS: IBUPROFEN 600 MG TAB PO PRN ×3 (06:22→18:19)
[2016-08-01] MEDS: SODIUM CHLORIDE 0.9% FLUSH 5 ML FLUSH IV SCH (09:00)
[2016-08-01] MEDS: LABETALOL HCL 200 MG TAB PO SCH ×2 (09:18→21:05)
--- NOTE | 2016-08-01 09:36 | HHI.OB ---
Subjective Remarks 31 year old status post day one after emergency for non- reassuring strip. This morning she is sitting up in bed. She has pain at the incision site that improves with pain medication. She reports no drainage from the incision site. She is . She is on magnesium sulfate until about 10:30 AM today. She is also on labetalol 200 mg bid for hypertension. BP this morning was 130/90. She has some blurry vision, no headache, epigastric pain, or edema. DTR's are normal this morning. She ate this morning. Has flatus but no bowel movement. Not ambulating yet. (Milan Johnson MD R2) Objective Vitals/I&O Vital Signs Date Time Temp Pulse Resp B/P Pulse Ox O2 Delivery O2 Flow Rate FiO2 08/01/16 06:00 74 130/90 08/01/16 06:00 16 08/01/16 05:00 64 131/78 08/01/16 04:00 16 08/01/16 04:00 65 131/77 08/01/16 03:00 16 08/01/16 03:00 65 130/69 08/01/16 01:00 68 16 125/76 07/31/16 23:10 84 140/91 07/31/16 23:00 16 07/31/16 23:00 88 137/95 07/31/16 23:00 16 07/31/16 23:00 16 07/31/16 22:00 75 152/95 07/31/16 21:52 18 07/31/16 21:00 18 07/31/16 19:07 16 07/31/16 19:05 96 161/97 07/31/16 19:00 118 130/103 07/31/16 18:30 90 149/90 07/31/16 18:02 85 16 148/88 07/31/16 17:30 96 156/96 07/31/16 17:00 77 162/83 07/31/16 16:46 16 07/31/16 16:30 75 150/82 07/31/16 16:00 82 157/101 07/31/16 15:39 85 164/99 07/31/16 15:31 98 167/113 07/31/16 15:11 16 07/31/16 15:00 79 156/93 07/31/16 14:57 86 150/95 07/31/16 14:30 16 07/31/16 12:46 75 151/95 07/31/16 12:45 73 164/97 07/31/16 12:43 18 07/31/16 11:27 133/84 07/31/16 11:14 65 119/77 07/31/16 11:14 96.5 18 98 07/31/16 09:45 95 128/78 07/31/16 09:30 83 121/64 Intake & Output 08/01/16 08/01/16 07:00 19:00 Output Total 550 ml Balance -550 ml Output Urine Total 550 ml (Milan Johnson MD R2) Result Diagram: 08/01/16 0442 07/30/16 0700 Objective Remarks GENERAL: Well-nourished, well-developed patient. CARDIOVASCULAR: Regular rate and rhythm without murmurs, gallops, or rubs. RESPIRATORY: Breath sounds equal bilaterally. No accessory muscle use. ABDOMEN/GI: Abdomen soft, non-tender, bowel sounds present. Incision: Clean, dry and intact. Fundus: Firm, non-tender at umbilicus. GENITOURINARY: Light to moderate bleeding. EXTREMITIES: No cyanosis or edema, non-tender, without signs of DVT. Medications and IVs Current Medications Medications (Trade) Dose Ordered Sig/Finn Route Start Time Stop Time Status Last Admin Oxytocin 500 ml @ 0 mls/hr TITRATE IV 07/30/16 07:30 07/30/16 08:04 Lactated Ringer's 1,000 ml @ 125 mls/hr Q8H IV 07/30/16 07:30 07/30/16 20:16 Lactated Ringer's 1,000 ml @ 3,000 mls/hr Q20M PRN IV 07/30/16 07:30 (NS 1000 ml Inj) 1,000 ml @ 100 mls/hr Q10H PRN IV 07/30/16 07:50 (Zofran Inj) 4 mg Q6H PRN IV 07/30/16 07:30 (fentaNYL INJ) 50 mcg Q1H PRN IV PUSH 07/30/16 07:30 (fentaNYL INJ) 100 mcg Q1H PRN IV PUSH 07/30/16 07:30 07/31/16 09:00 Mineral Oil 10 ml 10 ml UNSCH PRN TOPICAL 07/30/16 07:30 (Lr 1000 ml Inj) 1,000 ml @ 75 mls/hr [id number] IV 07/30/16 20:01 08/01/16 01:51 (NS Flush) 2 ml UNSCH PRN IV 07/30/16 20:15 IV Flush 2 ml 2 ml BID IV 07/30/16 21:00 (Magnesium Sulfate 40 Gm Premix) 1,000 ml @ 50 mls/hr Q20H IV 07/30/16 20:01 07/31/16 18:16 Calcium Gluconate 1 gm 1 gm UNSCH PRN IV PUSH 07/30/16 20:15 Fentanyl/ Bupivacaine HCl 100 ml @ 0 mls/hr TITRATE EPIDURAL 07/30/16 19:30 07/31/16 01:09 Lactated Ringer's 1,000 ml @ 150 mls/hr Q6H40M IV 07/31/16 10:23 (Lr 1000 ml Inj) 1,000 ml @ 100 mls/hr Q10H IV 07/31/16 15:51 08/01/16 11:50 07/31/16 17:24 (NS Flush) 2 ml BID IV 07/31/16 21:00 (NS Flush) 2 ml UNSCH PRN IV 07/31/16 11:00 (Tylenol) 650 mg Q6H PRN PO 07/31/16 11:00 (Motrin) 600 mg Q6H PRN PO 07/31/16 11:00 08/01/16 06:22 (Toradol Inj) 30 mg Q6H PRN IM 07/31/16 11:00 08/01/16 10:59 07/31/16 13:28 (Percocet 5-325 Mg) 1 tab Q4H PRN PO 07/31/16 11:00 (Percocet 5-325 Mg) 2 tab Q4H PRN PO 07/31/16 11:00 08/01/16 06:21 (Ambien) 5 mg HS PRN PO 07/31/16 11:00 (M-M-R Ii Inj) 0.5 ml ONCE ONCE SQ 08/01/16 16:00 08/01/16 16:01 (Boostrix Inj) 0.5 ml ONCE ONCE IM 08/01/16 16:00 08/01/16 16:01 Ondansetron HCl 4 mg 4 mg Q6H PRN IV PUSH 07/31/16 11:00 Lactated Ringer's 1,000 ml @ 75 mls/hr [id number] IV 07/31/16 10:51 07/31/16 12:40 (Magnesium Sulfate 40 Gm Premix) 1,000 ml @ 50 mls/hr Q20H IV 07/31/16 10:51 07/31/16 12:03 (Calcium Gluconate Inj) 1 gm UNSCH PRN IV PUSH 07/31/16 11:00 Miscellaneous Information NO SYSTEMIC NARCOTICS TO BE GIVEN FO... UNSCH PRN XX 07/31/16 13:00 08/01/16 12:59 (Narcan Inj) 0.4 mg UNSCH PRN IV 07/31/16 13:00 08/01/16 12:59 (Benadryl Inj) 25 mg Q6H PRN IV PUSH 07/31/16 13:00 08/01/16 12:59 (Benadryl) 50 mg Q6H PRN PO 07/31/16 13:00 08/01/16 12:59 Miscellaneous Information ALL NURSING DEPARTMENTS UNSCH PRN XX 07/31/16 13:00 08/01/16 12:59 (Trandate) 200 mg Q12HR PO 08/01/16 09:00 08/01/16 09:18 (Milan Johnson MD R2) Assessment/Plan Assessment and Plan 31 year old POD 1 after for non-reassuring strip, induced hypertension. - Continue magnesium sulfate until 10:30 AM, monitor DTR's. - Labetalol 200 mg bid, monitor blood pressures. - Encourage exclusive . - Encourage ambulation. - Monitor incision site - Monitor lochia. - Will follow up with Lindsey Courtney at discharge. Will need follow up within 2-3 days due to preeclampsia risk. - Anticipate discharge in 1 to [address] Jimenes. (Milan Johnson MD R2) Attending Attestation POD #1 s/p primary BPs mildly elevated, labile on magnesium sulfate Labetalol 200 mg BID Magnesium Sulfate to be d/c this AM Continue PP care and management Patient seen and examined. D/w Dr. Johnson (Rosa Jimenes MD) Milan Johnson MD R2 Aug 01, 2016 09:36 Rosa Jimenes MD Aug 01, 2016 09:40
[2016-08-01] MEDS ORDERED: MEASLES, MUMPS, RUBELLA VACCINE 0.5 ML VIAL SQ ONE (16:00)
[2016-08-01] MEDS ORDERED: DIPHTH/TETANUS/ACEL PERTUSSIS (BOOSTER) 0.5 ML VIAL/PFS IM ONE (16:00)
[2016-08-02] MEDS: IBUPROFEN 600 MG TAB PO PRN ×4 (00:34→23:04)
[2016-08-02] MEDS: oxyCODONE/ACETAMINOPHEN 5 MG/325 MG TAB PO PRN ×6 (00:34→20:59)
--- NOTE | 2016-08-02 07:37 | HHI.OB ---
Subjective Post Operative Day: 2 Remarks Postoperative day number 2. AFVSS overnight. Pain controlled. Incision not draining. Decreased lochia. Denies dysuria. No breast tenderness. She is feeding the baby via breast. Appetite good. No nausea or vomiting. Positive flatus. Negative bowel movement. Ambulating well. Denies calf pain, shortness of breath, or cough. Otherwise, she is doing well this morning and has no other complaints. (José Anne MD R2) Objective Vitals/I&O Vital Signs Date Time Temp Pulse Resp B/P Pulse Ox O2 Delivery O2 Flow Rate FiO2 08/01/16 16:30 97.7 75 20 149/90 08/01/16 14:03 80 148/86 08/01/16 13:00 156/110 08/01/16 13:00 84 08/01/16 12:00 79 18 143/88 08/01/16 11:00 78 137/82 08/01/16 10:00 86 146/84 08/01/16 09:00 90 140/88 08/01/16 08:00 149/97 08/01/16 08:00 78 (José Anne MD R2) Result Diagram: 08/01/16 0442 07/30/16 0700 Objective Remarks GENERAL: Well-nourished, well-developed patient. CARDIOVASCULAR: Regular rate and rhythm without murmurs, gallops, or rubs. RESPIRATORY: Breath sounds equal bilaterally. No accessory muscle use. ABDOMEN/GI: Abdomen soft, non-tender, bowel sounds present. Incision: Clean, dry and intact. Fundus: Firm, non-tender at umbilicus. GENITOURINARY: Light to moderate bleeding. EXTREMITIES: No cyanosis or edema, non-tender, without signs of DVT. Medications and IVs Current Medications Medications (Trade) Dose Ordered Sig/Finn Route Start Time Stop Time Status Last Admin Oxytocin 500 ml @ 0 mls/hr TITRATE IV 07/30/16 07:30 07/30/16 08:04 Lactated Ringer's 1,000 ml @ 125 mls/hr Q8H IV 07/30/16 07:30 07/30/16 20:16 Lactated Ringer's 1,000 ml @ 3,000 mls/hr Q20M PRN IV 07/30/16 07:30 (NS 1000 ml Inj) 1,000 ml @ 100 mls/hr Q10H PRN IV 07/30/16 07:50 (Zofran Inj) 4 mg Q6H PRN IV 07/30/16 07:30 (fentaNYL INJ) 50 mcg Q1H PRN IV PUSH 07/30/16 07:30 (fentaNYL INJ) 100 mcg Q1H PRN IV PUSH 07/30/16 07:30 07/31/16 09:00 Mineral Oil 10 ml 10 ml UNSCH PRN TOPICAL 07/30/16 07:30 (Lr 1000 ml Inj) 1,000 ml @ 75 mls/hr [id number] IV 07/30/16 20:01 08/01/16 01:51 (NS Flush) 2 ml UNSCH PRN IV 07/30/16 20:15 IV Flush 2 ml 2 ml BID IV 07/30/16 21:00 (Magnesium Sulfate 40 Gm Premix) 1,000 ml @ 50 mls/hr Q20H IV 07/30/16 20:01 07/31/16 18:16 Calcium Gluconate 1 gm 1 gm UNSCH PRN IV PUSH 07/30/16 20:15 Fentanyl/ Bupivacaine HCl 100 ml @ 0 mls/hr TITRATE EPIDURAL 07/30/16 19:30 07/31/16 01:09 (Lr 1000 ml Inj) 1,000 ml @ 150 mls/hr Q6H40M IV 07/31/16 10:23 (NS Flush) 2 ml BID IV 07/31/16 21:00 (NS Flush) 2 ml UNSCH PRN IV 07/31/16 11:00 (Tylenol) 650 mg Q6H PRN PO 07/31/16 11:00 (Motrin) 600 mg Q6H PRN PO 07/31/16 11:00 08/02/16 00:34 (Percocet 5-325 Mg) 1 tab Q4H PRN PO 07/31/16 11:00 (Percocet 5-325 Mg) 2 tab Q4H PRN PO 07/31/16 11:00 08/02/16 04:32 (Ambien) 5 mg HS PRN PO 07/31/16 11:00 Ondansetron HCl 4 mg 4 mg Q6H PRN IV PUSH 07/31/16 11:00 Lactated Ringer's 1,000 ml @ 75 mls/hr [id number] IV 07/31/16 10:51 07/31/16 12:40 (Magnesium Sulfate 40 Gm Premix) 1,000 ml @ 50 mls/hr Q20H IV 07/31/16 10:51 07/31/16 12:03 (Calcium Gluconate Inj) 1 gm UNSCH PRN IV PUSH 07/31/16 11:00 (Flu (Quadrivalent) Vaccine Inj) 0.5 ml ONCE ONCE IM 08/03/16 10:00 08/03/16 10:01 (Trandate) 300 mg Q12HR PO 08/02/16 09:00 UNV (José Anne MD R2) Assessment/Plan Problem List: (1) High blood pressure affecting in third trimester,antepartum (2) 40 weeks gestation of (3) care following delivery (4) delivery delivered Assessment and Plan 31 year old POD 2 after for non-reassuring strip, induced hypertension. - Labetalol 300 mg bid, monitor blood pressures. - Encourage exclusive . - Encourage ambulation. - Monitor incision site - Monitor lochia. - Will follow up with Lindsey Courtney at discharge. Will need follow up within 2-3 days due to preeclampsia risk. - Anticipate discharge in [address] Vail. Discharge Planning Discharge plan for 1 day (José Anne MD R2) Attending Attestation Patient seen and evaluated with resident under direct supervision, agree with assessment and plan. (Dean Vail MD) José Anne MD R2 Aug 02, 2016 07:37 Dean Vail MD Aug 02, 2016 09:19
[2016-08-02] MEDS: SODIUM CHLORIDE 0.9% FLUSH 5 ML FLUSH IV SCH (08:57)
[2016-08-02] MEDS: LABETALOL HCL 300 MG TAB PO SCH ×2 (09:14→21:22)
[2016-08-02 19:30] VITALS: BP 122/92; PULSE 73; RESP 18; TEMP 98
[2016-08-02 20:00] VITALS: BP 122/92; PULSE 73; RESP 18; TEMP 98
[2016-08-02] MEDS: DOCUSATE SODIUM 50 MG/SENNA 8.6 MG TAB PO PRN (21:22)
[2016-08-03] MEDS: oxyCODONE/ACETAMINOPHEN 5 MG/325 MG TAB PO PRN ×3 (01:38→10:09)
[2016-08-03] MEDS: IBUPROFEN 600 MG TAB PO PRN (06:08)
[2016-08-03] MEDS ORDERED: OXYC1TAB63 PO (07:41)
[2016-08-03] MEDS ORDERED: IBUP-232 PO (07:41)
--- NOTE | 2016-08-03 07:41 | HHI.DCPOC ---
Discharge Care Plan Diagnosis: (1) delivery delivered Report Symptoms to Your Doctor -Temperate above 100.5 degrees -Redness, of incision or excessive or foul smelling drainage -Unusual pain or calf pain -Increased vaginal bleeding -Painful or difficulty urinating -Feelings of extreme sadness or anxiety after 2 weeks Goals to Promote Your Health * To prevent worsening of your condition and complications * To maintain your health at the optimal level Directions to Meet Your Goals Take your medications as prescribed Follow your dietary instruction Follow activity as directed Ensure plenty of rest for recovery Drink fluids for hydration Keep your appointments as scheduled Take your immunizations and boosters as scheduled If your symptoms worsen call your PCP, if no PCP go to Urgent Care Center or Emergency Room Smoking is Dangerous to Your Health. Avoid second hand smoke Call the 24-hour crisis hotline for domestic abuse at Balaji Kennedy MD R1 Aug 03, 2016 07:41
[2016-08-03] MEDS ORDERED: LABE300T PO (07:46)
--- NOTE | 2016-08-03 07:47 | HHI.OB ---
Subjective Post Operative Day: 3 Remarks 31 year old female s/p C/S at 40/2 wks gestation, POD 3. AFVSS. Patient reports she is feeling well. Bleeding is decreasing and pain is well- controlled. She is breast + formula feeding and bonding well with baby. Ambulating without difficulties. She is tolerating a diet without nausea or vomiting. She has not had a bowel movement. She has passed gas. Denies chest pain, dysuria, shortness of breath, or calf pain. Objective Vitals/I&O Vital Signs Date Time Temp Pulse Resp B/P Pulse Ox O2 Delivery O2 Flow Rate FiO2 08/02/16 20:00 98.0 08/02/16 20:00 73 18 122/92 08/02/16 19:30 98.0 73 18 122/92 Result Diagram: 08/01/16 0442 07/30/16 0700 Objective Remarks GENERAL: Well-nourished, well-developed patient sitting up in bed in [facility]. CARDIOVASCULAR: Regular rate and rhythm without murmurs, gallops, or rubs. RESPIRATORY: Breath sounds equal bilaterally. No accessory muscle use. ABDOMEN/GI: Abdomen soft, non-tender, bowel sounds present. Incision: Clean, dry and intact. Fundus: Firm, non-tender at umbilicus. GENITOURINARY: Light to moderate bleeding. EXTREMITIES: No cyanosis or edema, non-tender, without signs of DVT. Medications and IVs Current Medications Medications (Trade) Dose Ordered Sig/Finn Route Start Time Stop Time Status Last Admin Oxytocin 500 ml @ 0 mls/hr TITRATE IV 07/30/16 07:30 07/30/16 08:04 Lactated Ringer's 1,000 ml @ 125 mls/hr Q8H IV 07/30/16 07:30 07/30/16 20:16 Lactated Ringer's 1,000 ml @ 3,000 mls/hr Q20M PRN IV 07/30/16 07:30 (NS 1000 ml Inj) 1,000 ml @ 100 mls/hr Q10H PRN IV 07/30/16 07:50 (Zofran Inj) 4 mg Q6H PRN IV 07/30/16 07:30 (fentaNYL INJ) 50 mcg Q1H PRN IV PUSH 07/30/16 07:30 (fentaNYL INJ) 100 mcg Q1H PRN IV PUSH 07/30/16 07:30 07/31/16 09:00 Mineral Oil 10 ml 10 ml UNSCH PRN TOPICAL 07/30/16 07:30 (Lr 1000 ml Inj) 1,000 ml @ 75 mls/hr [id number] IV 07/30/16 20:01 08/01/16 01:51 (NS Flush) 2 ml UNSCH PRN IV 07/30/16 20:15 IV Flush 2 ml 2 ml BID IV 07/30/16 21:00 08/02/16 08:57 (Magnesium Sulfate 40 Gm Premix) 1,000 ml @ 50 mls/hr Q20H IV 07/30/16 20:01 07/31/16 18:16 Calcium Gluconate 1 gm 1 gm UNSCH PRN IV PUSH 07/30/16 20:15 Fentanyl/ Bupivacaine HCl 100 ml @ 0 mls/hr TITRATE EPIDURAL 07/30/16 19:30 07/31/16 01:09 (Lr 1000 ml Inj) 1,000 ml @ 150 mls/hr Q6H40M IV 07/31/16 10:23 (NS Flush) 2 ml BID IV 07/31/16 21:00 (NS Flush) 2 ml UNSCH PRN IV 07/31/16 11:00 (Tylenol) 650 mg Q6H PRN PO 07/31/16 11:00 (Motrin) 600 mg Q6H PRN PO 07/31/16 11:00 08/03/16 06:08 (Percocet 5-325 Mg) 1 tab Q4H PRN PO 07/31/16 11:00 (Percocet 5-325 Mg) 2 tab Q4H PRN PO 07/31/16 11:00 08/03/16 06:09 (Ambien) 5 mg HS PRN PO 07/31/16 11:00 08/02/16 23:03 Ondansetron HCl 4 mg 4 mg Q6H PRN IV PUSH 07/31/16 11:00 Lactated Ringer's 1,000 ml @ 75 mls/hr [id number] IV 07/31/16 10:51 07/31/16 12:40 (Magnesium Sulfate 40 Gm Premix) 1,000 ml @ 50 mls/hr Q20H IV 07/31/16 10:51 07/31/16 12:03 (Calcium Gluconate Inj) 1 gm UNSCH PRN IV PUSH 07/31/16 11:00 (Flu (Quadrivalent) Vaccine Inj) 0.5 ml ONCE ONCE IM 08/03/16 10:00 08/03/16 10:01 08/02/16 17:05 (Trandate) 300 mg Q12HR PO 08/02/16 09:00 08/02/16 21:22 (Nithya-Colace) 2 tab Q12H PRN PO 08/02/16 21:15 08/02/16 21:22 Assessment/Plan Problem List: (1) High blood pressure affecting in third trimester,antepartum (2) 40 weeks gestation of (3) care following delivery (4) delivery delivered Assessment and Plan 31 yo female s/p C/S POD 3. - AFVSS - Continue routine care - Motrin and Percocet PRN pain - Encourage OOB - Pelvic rest x 6 wks. - Contraception: To discuss with PCP - Anticipate D/C today Home today; follow up with Dr. Riggins to recheck C/S scar - Will follow up with Lindsey Courtney at discharge. Will need follow up within 2-3 days due to preeclampsia risk. Discussed with Dr. Hua Discharge Planning Home today Balaji Kennedy MD R1 Aug 03, 2016 07:47
[2016-08-03] MEDS: LABETALOL HCL 300 MG TAB PO SCH (09:11)
[2016-08-03] MEDS: DOCUSATE SODIUM 50 MG/SENNA 8.6 MG TAB PO PRN (09:11)
[2016-08-03] MEDS ORDERED: INFLUENZA VIRUS VACCINE (QUADRIVALENT) 0.5 ML SYR IM ONE (10:00)
[2016-08-03 10:19] VITALS: BP 179/97
[2016-08-04 08:37] LABS: BATH SALTS (MDPV) UR NEG (NEG); ECSTASY (MDMA) UR NEG (NEG); HEROIN (6-ACETYLMORPHINE) UR NEG (NEG); K2 SPICE UR NEG (NEG); OBMETHADONE UR NEG (NEG); OXYCODONE (PERCODAN) NEG (NEG); PHENCYCLIDINE URINE NEG (NEG)
[2016-08-13] MEDS ORDERED: LABE100T2 PO (11:29)
[2016-09-01] MEDS ORDERED: HYDR1CRE73 PR (10:07)
[2016-09-01] MEDS ORDERED: ORTH0.35 PO (10:08)
== END 2016-08-03 11:29 | disposition home or self-care (01) | DRG 766 ==
LOC: H2EA 06:09 → H1EA 08-01 15:31
PROVIDERS: ADMIT Obstetrics & Gynecology; ATTEND Obstetrics & Gynecology
PROC: 10D00Z1 Extraction of Products of Conception, Low, Open Approach (ICD-10-PCS; principal; 2016-07-30)
DX: O32.4XX0 Maternal care for high head at term, not applicable or unspecified (principal); O13.4 Gestational [pregnancy-induced] hypertension without significant proteinuria, complicating childbirth; F17.200 Nicotine dependence, unspecified, uncomplicated; O32.8XX0 Maternal care for other malpresentation of fetus, not applicable or unspecified; O99.334 Smoking (tobacco) complicating childbirth; Z3A.40 40 weeks gestation of pregnancy; Z37.0 Single live birth
CPT/HCPCS: 36415; 59025; 80053; 80307; 81001; 82570; 82805; 83615; 84156; 84550; 85025; 86850; 86900; 86901; 87086; 88307; 90686; 90715; C1765; G0481; J0131; J0690; J1170; J1885; J2060; J2274; J2590; J3010; J3475; J7120; Q2038